=== PATIENT | female | born 1990 | race Caucasian/White ===

== ENCOUNTER 2024-11-25 09:25 | Emergency (ER) | payer OTHER, SELFPAY ==
[2024-11-25 09:31] VITALS: BP 111/67
--- NOTE | 2024-11-25 10:03 | ED.GENMED ---
History of Present Illness
General
Chief Complaint: Skin Surface Trauma
Source: patient
Time Seen by Provider: 11/25/24 09:37
History of Present Illness
History of Present Illness:
33-year-old female presents to the emergency room complaining of a laceration to her left hand. Patient was cleaning a glass which inadvertently caused a laceration at the base of her left thumb. Immunizations including tetanus are up-to-date. No
other injuries. The glass did not break but rather she cut herself on a sharp edge.
Phy Exam
Physical Exam
Physical Exam:
General: Awake, Alert, Oriented X3. No acute distress.
Vitals: unremarkable
Head: Atraumatic
Eyes: Pupils equal, EOMI
Neuro: Grossly nonfocal
Skin: Warm, dry, no rash
Extremities: pulses equal b/l, no edema. 1 center laceration palmar surface base of left thumb. Wound explored to the base without any penetration of the subcutaneous tissue. Sensation and range of motion of the thumb are intact.
Course
Vital Signs
Initial and Last Documented VS:
Initial Vital Signs
Temp Pulse Resp BP Pulse Ox
98.8 F 98 17 111/67 99
11/25/24 09:31 11/25/24 09:31 11/25/24 09:31 11/25/24 09:31 11/25/24 09:31
Last Documented Vital Signs
Temp Pulse Resp BP Pulse Ox
98.8 F 98 17 111/67 99
11/25/24 09:31 11/25/24 09:31 11/25/24 09:31 11/25/24 09:31 11/25/24 09:31
Procedures
Laceration Closure
Left Hand:
Status of Wound: clean
Size of Wound in cm: 1
Description of Wound Edges: sharp
Preparation: cleaned with saline
Anesthesia: 1% Lidocaine with epi
Revision/Debridement: routine- no revision
Wound exploration: explored to base- no FB
Type of Closure: single layer closure
Skin Closure Material: 4-0 nylon
Number of sutures: 2
MDM/Problems Addressed
Differential Diagnosis Includes:
Laceration, tendon injury
MDM/Problems Addressed:
No evidence for tendon injury on exam and wound exploration. Wound closed with 2 sutures. They should be removed in 7 days.
*Pulse Oximetry
SaO2: 99
Oxygen Mode of Delivery: Room air
Patient hypoxic: no
*Critical Care Note
Total Time (30-74mins, 75-104mins- exclusive of procedures): Not Applicable
ED Attending Note
-
Portions of this chart may have been created with voice recognition software.� Occasional wrong word or��sound alike� substitutions may have occurred due to the inherent limitations of voice recognition software.
Discharge Plan
Departure
Patient Disposition: Home (Routine Discharge)
Date of Disposition: 11/25/24
Time of Disposition: 10:03
Patient with high blood pressure during this ER visit?: No
Condition: Good
Discharge Problem:
Laceration of hand, left
Instructions: Laceration Repair With Stitches (DC)
Activity Restrictions/Additional Instructions:
Sutures should be removed
Interventions
Interventions:
*Risk Screen - Suicide Last Done: 11/25/24 09:32
*General Assessment Last Done: 11/25/24 09:32
*Neglect/Abuse Screening Last Done: 11/25/24 09:32
*ED COVID-19 Vaccine History Last Done: 11/25/24 09:31
ED-Skin Assessment Last Done: 11/25/24 09:40
Discharge Date and Time
Print Language: [place]
== END 2024-11-25 10:15 | disposition home or self-care (01) ==
LOC: EMR 09:25
PROVIDERS: EMERGENCY PHYSICIAN Emergency Medicine
DX: S61.412A Laceration without foreign body of left hand, initial encounter (principal); W25.XXXA Contact with sharp glass, initial encounter; Y93.G1 Activity, food preparation and clean up
CPT/HCPCS: 99282; 12001